=== PATIENT | male | born 1990 | race Caucasian/White ===

== ENCOUNTER 2017-03-15 21:28 | Emergency (ER) | payer SELFPAY ==
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
[2017-03-16 02:23] VITALS: BP 113/74
--- NOTE | 2017-03-16 10:05 | EKG REPORT ---
SEVERITY:- ABNORMAL ECG - SINUS RHYTHM PROBABLE LEFT ATRIAL ABNORMALITY PROBABLE LEFT VENTRICULAR HYPERTROPHY : Confirmed by: Rajinder Deleon 16-Mar-2017 10:05:23
== END 2017-03-16 02:10 | disposition home or self-care (01) ==
LOC: ER 21:28
DX: R07.9 Chest pain, unspecified (principal); F17.200 Nicotine dependence, unspecified, uncomplicated
CPT/HCPCS: 71020; 93005; 93010; 99285